=== PATIENT | female | born 1970 | race Caucasian/White ===

== ENCOUNTER 2020-10-18 12:24 | Outpatient (CLI) | payer OTHER, SELFPAY ==
--- NOTE | 2020-10-18 12:59 | ECHO_ITS ---
Patient Info Name: Leigh Rader Age: 50 years : 1970 Gender: Female Ht: 66 in Wt: 155 lbs BSA: 1.82 m2 HR: 60 bpm BP: 117 / 79 mmHg Heart Rhythm: Sinus Rhythm Technical Quality: Good Exam Date: 10/18/2020 1:25 PM Exam Location: [facility] Patient Status: Outpatient Admit Date: 10/18/2020 Staff Ordering Physician: Deangelo Narayan MD Drop Hammer Pile Driver Operator: Mariam Recinos RDCS Attending Provider: Deangelo Narayan MD Exam Type: CA echo doppler color flow Study Info Indications R01.1 - Cardiac murmur, unspecified Complete two-dimensional, color flow and Doppler transthoracic echocardiogram is performed. Summary 1. Complete two-dimensional, color flow and Doppler transthoracic echocardiogram is performed. 2. Left ventricular chamber dimension is normal. 3. Left ventricular systolic function is normal, estimated at 60-65%. 4. The left ventricular diastolic function is normal. 5. E/e' 8 is minimally elevated. 6. Global longitudinal strain is normal at -20.5%. 7. There is trace mitral valve regurgitation. 8. There is trace tricuspid valve regurgitation. 9. No pulmonary hypertension, estimated pulmonary arterial systolic pressure is 16 mmHg. Left Ventricle E/e' 8 is minimally elevated. Global longitudinal strain is normal at -20.5%. Left ventricular chamber dimension is normal. Left ventricular systolic function is normal, estimated at 60-65%. The left ventricular diastolic function is normal. Right Ventricle Right ventricular chamber dimension is normal. Right ventricular systolic function is normal. Left Atria Left atrial chamber dimension is normal. Right Atria Right atrial chamber dimension is normal. Aortic Valve The aortic valve is trileaflet. There is no aortic valve stenosis. There is no aortic valve regurgitation. Pulmonic Valve There is no pulmonic regurgitation. Mitral Valve There is no mitral valve stenosis. There is trace mitral valve regurgitation. Tricuspid Valve There is trace tricuspid valve regurgitation. No pulmonary hypertension, estimated pulmonary arterial systolic pressure is 16 mmHg. Pericardium/Pleural There is no pericardial effusion. Inferior Vena Cava Normal inferior vena cava with >50% collapse upon inspiration consistent with normal right atrial pressure, 5 mmHg. Aorta The aortic root size at the sinus of Valsalva is normal. Left Ventricular Outflow Tract Name Value Normal LVOT 2D LVOT Diameter 2.0 cm LVOT Doppler LVOT Peak Gradient 6 mmHg LVOT Mean Gradient 4 mmHg LVOT VTI 26 cm LVOT VTI/AV VTI Ratio 0.7 LVOT Stroke Volume 81 ml LVOT CO 16.8 l/min LVOT CI 9.2 l/min/m2 Pulmonic Valve Name Value Normal PV Doppler -----
== END 2020-10-18 12:25 | disposition home or self-care (01) ==
PROVIDERS: PCP Family Medicine; Visit Provider Family Medicine
DX: R01.1 Cardiac murmur, unspecified (principal)
CPT/HCPCS: 93306

== ENCOUNTER → 2021-03-19 14:02 | Outpatient (CLI) | payer OTHER, SELFPAY ==
--- NOTE | ~2021-03-19 | XR_ITS ---
XR chest 2V DATE: 03/19/2021 14:14 INDICATION: Cough TECHNIQUE: 2 views COMPARISON: 05/20/2011 two-view chest FINDINGS: Normal heart size. No hilar or mediastinal enlargement. No pulmonary infiltrate or consolid ation, pleural effusion or pulmonary vascular congestion or pneumothorax. IMPRESSION: Negative chest Reviewed, dictated and finalized at location A. C WINFOR[employer] DEVELOPER IMPRESSION: Negative chest
== END ==
PROVIDERS: PCP Nurse Practitioner; Visit Provider Nurse Practitioner
DX: R05.9 Cough, unspecified (principal)
CPT/HCPCS: 71046

== ENCOUNTER 2023-10-27 09:10 | Emergency (ER) | payer BC, SELFPAY ==
--- NOTE | 2023-10-27 09:19 | ED.URI ---
HPI - URI/Sore Throat General Chief Complaint: Upper Respiratory Infection Stated Complaint: Sore Throat Time Seen by Provider: 10/27/23 09:20 Source: patient Mode of arrival: ambulatory Limitations: no limitations History of Present Illness HPI Narrative: Leigh is a 53-year-old female patient presenting to the clinic today with complaints of ulcers to the back of her throat for the past 1-2 days. She states her dentist ordered her some Magic mouthwash however she is unable to get that until Friday or Friday. States that the pain is worse with eating/drinking. Takes methotrexate and has infusions for RA MD elicited complaint: sore throat and nasal congestion Related Data Home Medications Medication Instructions Recorded Confirmed folic acid 1 mg tablet 1 mg PO DAILY 06/26/21 07/25/23 methotrexate sodium 2.5 mg tablet See Rx Instructions PO .COMPLEX 06/26/21 07/25/23 [id number] 8 mg-folic 400 1 tablet PO DAILY 06/26/21 07/25/23 mcg-K 50 mcg-lutein 300 mcg tablet (Centrum Silver Women) prednisone 5 mg tablet See Rx Instructions PO .COMPLEX PRN 06/26/21 07/25/23 tramadol 50 mg tablet 50 mg PO Q6H PRN Pain 06/26/21 07/25/23 tocilizumab 80 mg/4 mL (20 mg/mL) IV Q28D 07/25/23 07/25/23 intravenous solution (Actemra) Allergies Allergy/AdvReac Type Severity Reaction Status Date / Time sulfamethoxazole Allergy Intermediate Hives / Verified 10/27/23 09:25 Red Face trimethoprim Allergy Intermediate HIVES Verified 10/27/23 09:25 OXYCODONE HCL Allergy Intermediate Hives / Uncoded 10/27/23 09:25 Red Face Review of Systems Review of Systems: Pertinent positives per HPI. Patient denies any fever, chills, rash, headache, visual changes, dizziness, cough, runny nose, sore throat, shortness of breath, chest pain, palpitations, nausea, vomiting, diarrhea, constipation, abdominal pain, or any urinary issues. [facility] Past Medical History Medical History Annual visit for general adult medical examination without abnormal findings Chronic pain of left knee Dyslipidemia Environmental allergies History of Pablo's palsy Hypothyroidism Menopausal symptoms Mild intermittent asthma without complication Rheumatoid arthritis Simple partial seizures Vitamin B12 deficiency Vitamin D deficiency Surgical History Surgical History History of left breast biopsy (~2016) 2016 History of left knee surgery (~1980) x3 History of right breast biopsy (~2014) 2015, 2018 History of tonsillectomy (~1974) History of total hysterectomy (~2011) Family History Family History Mother Diabetes mellitus Family history of coronary artery disease Father Family history of coronary artery disease Social History Social History Smoking status: Never smoker Second hand tobacco smoke exposure: No Alcohol intake: current Alcohol use details: consumes 1 drink of mixed rarely Substance use: never Substance use type: does not use Lack of Transportation: No Lack of Food: Never True Current Housing: I Have Housing Concerned About Future Housing: No Difficulty Paying Gas/Electric Bills: No Difficulty Paying for Meds: No Currently Unemployed: No Education: Bachelor's Degree Difficulty w/ Childcare or Family Care: No Living arrangements: with family Additional living arrangements comments: Occupation/Education: occupation Gender identity (if verbalized by the patient): Female Sexual Orientation (if Verbalized by the Patient): Straight or Heterosexual Spiritual care concerns: No Comments At the time of my signature, I reviewed and agree with the nursing past medical, surgical, social, and family history. There is no relevant family history pertinent to th
[2023-10-27 09:24] VITALS: BP 133/83; PULSE 85; RESP 16; TEMP 36.6; O2SAT 100
[2023-10-27 09:33] LABS: EDSTREPNEGPOS1 Negative
== END 2023-10-27 09:44 | disposition home or self-care (01) ==
PROVIDERS: Emergency Provider Nurse Practitioner Family; PCP Family Medicine
DX: J39.2 Other diseases of pharynx (principal); E78.5 Hyperlipidemia, unspecified; E03.9 Hypothyroidism, unspecified; M06.9 Rheumatoid arthritis, unspecified; J45.909 Unspecified asthma, uncomplicated; Z90.710 Acquired absence of both cervix and uterus
CPT/HCPCS: 87081; 87880; 99213; G0463

== ENCOUNTER 2023-11-08 08:00 | Emergency (ER) | payer BC, SELFPAY ==
[2023-11-08 08:10] VITALS: BP 111/81; PULSE 95; RESP 16; TEMP 36.4; O2SAT 99
--- NOTE | 2023-11-08 08:23 | ED.EAR ---
HPI - Ear Problem General Chief complaint: Ear Stated complaint: EARACHE Time Seen by Provider: 11/08/23 08:15 Source: patient and RN notes reviewed Mode of arrival: ambulatory Limitations: no limitations History of Present Illness HPI Narrative: Patient presents today with ongoing left ear pain. She was seen a few weeks ago at Urgent Care for an ulceration in her pharynx that she has been treating as directed by her PCP in recurrent nurse practitioner without much relief. She has also been using a nasal spray without relief of her ear symptoms. She is concerned because she is flying tomorrow to [facility] for vacation and does not want the plane to affect her ear. Denies any difficulty hearing. Pain increases with swallowing and position changes in bed. Related Data Home Medications Medication Instructions Recorded Confirmed folic acid 1 mg tablet 1 mg PO DAILY 06/26/21 07/25/23 methotrexate sodium 2.5 mg tablet See Rx Instructions PO .COMPLEX 06/26/21 07/25/23 [id number]-[id number] 8 mg-folic 400 1 tablet PO DAILY 06/26/21 07/25/23 mcg-K 50 mcg-lutein 300 mcg tablet (Centrum Silver Women) prednisone 5 mg tablet See Rx Instructions PO .COMPLEX PRN 06/26/21 07/25/23 tramadol 50 mg tablet 50 mg PO Q6H PRN Pain 06/26/21 07/25/23 tocilizumab 80 mg/4 mL (20 mg/mL) IV Q28D 07/25/23 07/25/23 intravenous solution (Actemra) Allergies Allergy/AdvReac Type Severity Reaction Status Date / Time sulfamethoxazole Allergy Intermediate Hives / Verified 10/27/23 09:25 Red Face trimethoprim Allergy Intermediate HIVES Verified 10/27/23 09:25 OXYCODONE HCL Allergy Intermediate Hives / Uncoded 10/27/23 09:25 Red Face Review of Systems Review of Systems: CONSTITUTIONAL: Denies body aches, fever, chills, or sweats. EYES: Denies visual changes, redness, or discharge. ENT: Denies rhinorrhea, congestion. + throat pain, left ear pain CARDIOVASCULAR: Denies chest pain, palpitations, or edema. RESPIRATORY: Denies cough or dyspnea. GASTROINTESTINAL: Denies abdominal pain, nausea, vomiting, or diarrhea. GENITOURINARY: Denies dysuria or hematuria. SKIN: Denies rash, itching, or wounds. MUSCULOSKELETAL: Denies back pain, joint pain, or myalgia. NEUROLOGIC: Denies headache, numbness, tingling, or weakness. PSYCH: Denies depression or anxiety. [facility] Past Medical History Medical History Annual visit for general adult medical examination without abnormal findings Chronic pain of left knee Dyslipidemia Environmental allergies History of Pablo's palsy Hypothyroidism Menopausal symptoms Mild intermittent asthma without complication Rheumatoid arthritis Simple partial seizures Vitamin B12 deficiency Vitamin D deficiency Surgical History Surgical History History of left breast biopsy (~2016) 2016 History of left knee surgery (~1980) x3 History of right breast biopsy (~2014) 2015, 2017 History of tonsillectomy (~1974) History of total hysterectomy (~2011) Family History Family History Mother Diabetes mellitus Family history of coronary artery disease Father Family history of coronary artery disease Social History Social History Smoking status: Never smoker Second hand tobacco smoke exposure: No Alcohol intake: current Alcohol use details: consumes 1 drink of mixed rarely Substance use: never Substance use type: does not use Lack of Transportation: No Lack of Food: Never True Current Housing: I Have Housing Concerned About Future Housing: No Difficulty Paying Gas/Electric Bills: No Difficulty Paying for Meds: No Currently Unemployed: No Education: Bachelor's Degree Difficulty w/ Childcare or Family Care: No Living arrangements: with family Additi
== END 2023-11-08 08:34 | disposition home or self-care (01) ==
PROVIDERS: Emergency Provider Nurse Practitioner; PCP Family Medicine
DX: H92.02 Otalgia, left ear (principal); E78.5 Hyperlipidemia, unspecified; E03.9 Hypothyroidism, unspecified; M06.9 Rheumatoid arthritis, unspecified
CPT/HCPCS: 99211; G0463

== ENCOUNTER 2024-07-26 10:56 | Outpatient (CLI) | payer BC, SELFPAY ==
--- OUTSIDE RECORDS SUMMARY | 2024-07-26 11:35 | XMS_ITS | Encounter Summary ---
Author Organization [facility] Address [address] [facility] Attn: Epic Prelude ADT GAMA JOHNSON [address] Care Team Providers Care Breakfast Hostess Name Role Phone Memo Narayan MD Primary Care Provider Encounter Details Date Type Department Care Team (Late st Contact Info) Description 01/04/1997 Outpatient Historical Conversion, History Martin Salcedo MD [address] [facility] [place] [address] Social History Tobacco Use Types Packs/Day Years Used Date Smoking Tobacco: Never Assessed Comments Unknown Sex and Gender Information Value Date Recorded Sex Assigned at Not on file Legal Sex Female 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
--- OUTSIDE RECORDS SUMMARY | 2024-07-26 11:35 | XMS_ITS | Encounter Summary ---
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
--- OUTSIDE RECORDS SUMMARY | 2024-07-26 11:35 | XMS_ITS | Encounter Summary ---
Author Organization [facility] Address [address] [facility] Attn: Epic Prelude ADT GAMA JOHNSON [address] Care Team Providers Care Circuits Engineer Name Role Phone Memo Narayan MD Primary Care Provider Encounter Details Date Type Department Care Team (Late st Contact Info) Description 11/02/1996 Outpatient Historical Conversion, History Martin Salcedo MD [address] [facility] [place] [address] Social History Tobacco Use Types Packs/Day Years Used Date Smoking Tobacco: Never Assessed Comments Unknown Sex and Gender Information Value Date Recorded Sex Assigned at Not on file 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
--- OUTSIDE RECORDS SUMMARY | 2024-07-26 11:35 | XMS_ITS | Continuity of Care Document ---
Author Organization [facility] Address [address] [place] [address] Phone Care Team Providers Care Aitchbone Breaker Name Role Phone Enrique Chan MD Unavailable [...] Diagnoses Date Provider Providers [facility]ied on [facility], [address], [place], [place], [id number] , [place] tel: [phone] [facility] Encounter for immunization Momo Nunez. [address] [place] [address], [id number] , [place]. tel: [phone] Referring Provider: Enrique Chan [address], [address]. tel:[phone] [facility], [address], [place], [place], [address] , [place] tel: [phone] [facility] No Information 4 Dustin Enrique. [address] [place] [address], [id number] , . tel: [phone] [facility], [address], [place], [place], [id number] , [place] tel: [phone] [facility] No Information 4 Dustin Nunez. [address] [place] [address], [id number] , [place]. tel: [phone] Referring Provider: Enrique Chan, [address] [place] [address], [address]. tel:[phone] [facility], [address], [place], [place], [id number] , tel: [phone] [facility] INTRINSIC ASTHMA, UNSPECIFIEDAller gic rhinitis due to other allergen Sep-0 3 Dustin Enrique. [address] [place] [address], [id number] , . tel: [phone] Referring Provider: Marlon Antony, [address] [place] [address], [address]. tel:[phone] [facility], [address], [place], [place], [address] , [place] tel: [phone] [facility] No Information 2 Dustin Nunez. [address] [place] [address], [id number] , [place]. tel: [phone] Referring Provider: Enrique Chan, [address] [place] [address], [address]. tel:[phone] [facility], [address], [place], [place], [address] , [place] tel: [phone] [facility] INTRINSIC ASTHMA, UNSPECIFIEDAller gic rhinitis due to other allergen Sep-2 0- 2 Dustin Nunez. [address], [id number] , [place]. tel: [phone] Referring Provider: Marlon Antony, [address] [place] [address], [address]. tel:[phone] [facility], [address], [place], [place], [id number] , [place] tel: [phone] [facility] No Information 1 Dustin Nunez. [address], [id number] , [place]. tel: [phone] Referring Provider: Enrique Chan, [address] [place] [address], [address]. [phone] [facility], [address], [place], [place], [id number] , [place] tel: [phone] [facility] Allergic rhinitis due to other allergen Oct-2 1 Dustin Nunez. [address], [id number] , [place]. tel: [phone] Referring Provider: Marlon Antony, [address] [place] [address], [address]. tel:[phone] [facility], [address] [place] [address], [id number] , [place] tel: [phone] [facility] INTRINSIC ASTHMA NOSVACCIN FOR INFLUENZA 0 Dustin Nunez. [address], [id number] , [place]. tel: [phone] [facility], [address], [place], [id number] , [place] tel: [phone] [facility] ALLERGIC RHINITIS NEC 0 Dustin Nunez. [address], [id number] , [place]. tel: [phone] [facility], [address], [place], [place], [address] , [place] tel: [phone] [facility] RESPIRATORY ABNORM NEC 200 8 Dustin Nunez. [address], [id number] , [place]. tel:[phone] Family History Family Member Type Diagnosis Age At Onset No Information Immunizations Vaccine Date Status Comments Influenza, seasonal, injectable (3 yrs or older) administered Source: New Immunization Record Influenza, seasonal, injectable (3 yrs or older) administered Source: New Immunization Record Flu (split) (3 yrs or older) administered Source: New Immunization Record Flu (split) (3 yrs or older) administered Source: New Immunization Record [id number] - Influenza administered Source: Saima cuellar Unspecified Flu (split) (3 yrs or older) pending Source: New Immunization Record Payers Payer name Insurance type Covered alliance party ID Authoriza tion(s) [facility] [id number] [facility] [id number] Social History Type Description Quantity Date Captured [...]
--- OUTSIDE RECORDS SUMMARY | 2024-07-26 11:35 | XMS_ITS | Encounter Summary ---
Author Organization [facility] Address [address] [facility] Attn: Epic Prelude ADT [place]AMA [place] [address] Care Team Providers Care Manager Provider Relations Name Role Phone Memo Narayan MD Primary Care Provider Encounter Details Date Type Department Care Team (Late st Contact Info) Description 01/18/1997 Outpatient Historical Conversion, History Martin Salcedo MD [address] [place] [address] Social History Tobacco Use Types Packs/Day Years Used Date Smoking Tobacco: Never Assessed Comments Unknown Sex and Gender Information Value Date Recorded Sex Assigned at Not on file Legal Sex Female 4:32 AM CISSP Gender Identity Not on file Sexual Orientation Not on file documented as of this encounter Plan of Treatment Not on file documented as of this encounter Visit Diagnoses Not on filedocumented in this encounter Care Teams Manager Provider Relations Relationship Specialty Start Date End Date Memo Narayan MD [address] [place] [phone] PCP - General Family Practice 07/09/17 documented as of this encounter
--- OUTSIDE RECORDS SUMMARY | 2024-07-26 11:35 | XMS_ITS | Clinical Summary ---
Author Organization [email or web address] [place] Address [address] [place] [address] [address] Phone Care Team Providers Care Branch Chief Name Role Phone Memo Narayan MD Primary Care Provider Allergies Active Allergy Reactions Criticality Noted Date Comments Oxycodone-Acetaminophen Rash,Itching Low 06/22/2014 Sulfamethoxazole-Trimethoprim Hives High 2008 Medications simvastatin (ZOCOR) 40 mg Oral TabIndications:A bnormal mammogram, unspecified Take 40 mg by mouth Daily LATE. Active MOMETASONE FUROATE (NASONEX NA)Indications:A bnormal mammogram, unspecified Administer in each nostril. Active LEVOTHYROXINE 75 mcg tabletIndication s:Abnormal mammogram, unspecified 5 Active calcium Carbonate 390 mg (1,000 mg) Tablet Take 600 mg by mouth 2 times daily with meals. Active desoximetasone (TOPICORT) 0.25 % Ointment Apply to affected area of breast twice per day. 15 Gram 1 5 Active OXcarbazepine (TRILEPTAL) 150 mg tablet 6 Active venlafaxine (EFFEXOR XR) 75 mg Extended Release 24 hour capsule 9 Active Active Problems Patient Care Coordination No te Formatting of this note migh t be different from the original. Primary Care: Marlon Antony MD Referring Provider: No referring provider defined for this encounter. Other: Problem Noted Date Diagnosed Date Mammographic calcification 07/15/2017 Herpes zoster 07/13/2014 Fibrocystic changes of right breast 07/04/2014 Hypothyroidism Resolved Problems Problem Noted Date Diagnosed Date Resolved Date Breast lump 09/25/2015 01/21/2017 Visit for screening mammogram 2015 07/15/2017 Breast pain 09/05/2014 01/21/2017 Abnormal mammogram 01/16/2009 8 Encounters Date Type Department Care Team Description 07/20/2024 External Device Data [facility] ABSTRACTION Provider, Abstract 07/15/2024 External Device Data [facility] ABSTRACTION Provider, Abstract 2024 External Device Data [facility] ABSTRACTION Provider, Abstract 06/29/2024 External Device Data [facility] ABSTRACTION Provider, Abstract 05/12/2024 External Device Data [facility] ABSTRACTION Provider, Abstract 05/05/2024 External Device Data [facility] ABSTRACTION Provider, Abstract 05/04/2024 External Device Data [facility] ABSTRACTION Provider, Abstract 05/01/2024 External Device Data [facility] ABSTRACTION Provider, Abstract 05/01/2024 External Device Data [facility] ABSTRACTION Provider, Abstract 04/28/2024 External Device Data [facility] ABSTRACTION Provider, Abstract from Last 3 Months Family History Medical History Relation Name Comments Heart Disease Maternal Aunt Heart Disease Maternal Grandfather Heart Disease Maternal Uncle Diabetes Mother Breast Cancer Other 3 m.grtaunts 60-70 age Relation Name Status Comments Maternal Aunt Maternal Grandfather Maternal Uncle Mother Other 3 m.grtaunts Other Social History Tobacco Use Types Packs/Day Years Used Date Smoking Tobacco: Never Smokeless Tobacco: Never Alcohol Use Standard Drinks/Week Comments Yes 0 (1 standard drink = 0.6 oz pur e alcohol) rarely Comments No Sex and Gender Information Value Date Recorded Sex Assigned at Not on file Legal Sex Female 4:32 AM INTERNET MARKETING SPECIALIST Gender Identity Not on file Sexual Orientation Not on file Occupation Industry Job Start Date Job End Date Not on file Not on file Not on file Not on file Last Filed Vital Signs Vital Sign Reading Time Taken Comments Blood Pressure 98/56 08/07/2018 10:39 AM CDT Pulse 59 07/15/2017 9:59 AM CDT Temperature 36.4 C (97.6 F) 06/23/2014 12:03 PM CDT Respiratory Rate 9 06/23/2014 12:44 PM CDT Oxygen Saturation 98% 06/23/2014 12:44 PM CDT Inhaled Oxygen Concentration - - Weight 67.2 kg (148 lb 3.2 oz) 08/07/2018 10:39 AM CDT Height 167.6 cm (5' 6) 08/07/2018 10:39 AM CDT Body Mass Index 23.92 08/07/2018 10:39 AM CDT Plan of Treatment Health Maintenance Due Date Last Done Comments DTAP/TDAP/TD VACCINES (1 - Tdap) 07/15/1987 HEPATITIS B VACCINES (1 of 3 - 19+ 3-dose series) 07/15/1987 HPV/Cotest (21-29) 1989 CERVICAL CANCER SCREENING 1998 HPV/Cotest (30-65) 1998 PAP SMEAR 1998 COLORECTAL SCREENING 2013 Colorectal Cancer Screening 2013 FIT-DNA Q 3 years 2013 FIT/FOBT Q 1 year 2013 Flex Sig/CT Colonography Q 5 years 2013 ZOSTER VACCINE (1 of 2) 2018 INFLUENZA VACCINE (#1) 2023 BREAST CANCER SCREENING 02/09/2025 02/10/20 24, 01/30/2023, 10/17/2021, Additional history exists Procedures Procedure Name Priority Date/Time Associated Diagnosis Comments MAMMO 3D SHELLEY SCREEN BILAT W OR WO CAD Routine 02/10/2024 12:44 PM INTERNET MARKETING SPECIALIST Visit for screening mammogram from Last 3 Months or Most Recently Relevant to Health Maintenance Results * MAMMO 3D SHELLEY SCREEN BILAT W OR WO CAD (02/10/2024 12:44 PM INTERNET MARKETING SPECIALIST) Anatomical Region Laterality Modality Breast Bilateral Mammography 02/10/2024 12:4 5 PM INTERNET MARKETING SPECIALIST Impressions 02/10/2024 4:00 PM INTERNET MARKETING SPECIALIST IMPRESSION: Negative bilateral screening mammogram. Recommend routine followup. OVERALL FINAL ASSESSMENT: BI-RADS CATEGORY 1: Negative DICTATION LOCATION: [facility] 02/10/2024 4:00 PM INTERNET MARKETING SPECIALIST BILATERAL SCREENING DIGITAL MAMMOGRAM WITH 3D TOMOSYNTHESIS AND CAD DATE: 02/10/2024 12:44 PM HISTORY: Annual screening study. COMPARISON: 01/30/2023, 08/07/2018. TECHNIQUE: A bilateral screening mammogram was performed. Low-dose full-field digital breast tomosynthesis examination was performed with 2D and 3D acquisitions. Examination is read in conjunction with computer aided detection. BREAST COMPOSITION: There are scattered areas of fibroglandular density. FINDINGS: No new masses, suspicious calcifications, or areas of asymmetry or distortion are identified. The images were reviewed using the CAD system. Procedure Note Beatris Desai MD - 02/10/2024 BILATERAL SCREENING DIGITAL MAMMOGRAM WITH 3D TOMOSYNTHESIS AND CAD DATE: 02/10/2024 12:44 PM HISTORY: Annual screening study. COMPARISON: 01/30/2023, 08/07/2018. TECHNIQUE: A bilateral screening mammogram was performed. Low-dose full-field digital breast tomosynthesis examination was performed with 2D and 3D acquisitions. Examination is read in conjunction with computer aided detection. BREAST COMPOSITION: There are scattered areas of fibroglandular density. FINDINGS: No new masses, suspicious calcifications, or areas of asymmetry or distortion are identified. The images were reviewed using the CAD system. IMPRESSION: Negative bilateral screening mammogram. Recommend routine followup. OVERALL FINAL ASSESSMENT: BI-RADS CATEGORY 1: Negative DICTATION LOCATION: [facility] Memo Narayan MD MAMMO ORDERABLES Final Result from Last 3 Months or Most Recently Relevant to Health Maintenance Insurance [facility] BLUE ACCESS/TRUE BLUE PPO Advance Directives For more information, please contact: [phone] * Full Code (Latest Code Status on File) Date Activated Date Inactivated Comments 06/23/2014 10:11 AM 06/23/2014 3:19 PM * Full Code Date Activated Date Inactivated Comments 06/23/2014 9:57 AM 06/23/2014 10:11 AM Care Teams Branch Chief Relationship Specialty Start Date End Date Memo Narayan MD [address] [place] [phone] PCP - General Family Practice 07/09/17
--- OUTSIDE RECORDS SUMMARY | 2024-07-26 11:35 | XMS_ITS | Encounter Summary ---
Author Organization [facility] Address [address] [facility] Attn: Epic Prelude ADT GAMA [place] [address] Care Team Providers Care Mainspring Former Name Role Phone Memo Narayan MD Primary Care Provider Encounter Details Date Type Department Care Team (Late st Contact Info) Description 12/14/1996 Outpatient Historical Conversion, History Martin Salcedo MD [address] [place] [address] Social History Tobacco Use Types Packs/Day Years Used Date Smoking Tobacco: Never Assessed Comments Unknown Sex and Gender Information Value Date Recorded Sex Assigned at Not on file Legal Sex Female 4:32 AM SEED CORE OPERATOR Gender Identity Not on file Sexual Orientation Not on file documented as of this encounter Plan of Treatment Not on file documented as of this encounter Visit Diagnoses Not on filedocumented in this encounter Care Teams Mainspring Former Relationship Specialty Start Date End Date Memo Narayan MD [address] [place] [phone] PCP - General Family Practice 07/09/17 documented as of this encounter
--- OUTSIDE RECORDS SUMMARY | 2024-07-26 11:35 | XMS_ITS | Encounter Summary ---
Author Organization [facility] Address [address] [facility] Attn: Epic Prelude ADT GAMA [place] [phone] Care Team Providers Care Plate Colorer Name Role Phone Memo Narayan MD Primary Care Provider Encounter Details Date Type Department Care Team (Late st Contact Info) Description 05/17/1997 Outpatient Historical Conversion, History Martin Salcedo MD [address] [place] [address] Social History Tobacco Use Types Packs/Day Years Used Date Smoking Tobacco: Never Assessed Comments Unknown Sex and Gender Information Value Date Recorded Sex Assigned at Not on file Legal Sex Female 4:32 AM CHILD CARE DEVELOPMENT SPECIALIST Gender Identity Not on file Sexual Orientation Not on file documented as of this encounter Plan of Treatment Not on file documented as of this encounter Visit Diagnoses Not on filedocumented in this encounter Care Teams Plate Colorer Relationship Specialty Start Date End Date Memo Narayan MD [address] [place] [phone] PCP - General Family Practice 07/09/17 documented as of this encounter
--- OUTSIDE RECORDS SUMMARY | 2024-07-26 11:35 | XMS_ITS | Encounter Summary ---
Author Organization [facility] Address [address] [facility] Attn: Epic Prelude ADT GAMA [place] [phone] Care Team Providers Care Brim Raiser Name Role Phone Memo Narayan MD Primary Care Provider Encounter Details Date Type Department Care Team (Late st Contact Info) Description 08/06/1996 Outpatient Historical Conversion, History Martin Salcedo MD [address] [place] [address] Social History Tobacco Use Types Packs/Day Years Used Date Smoking Tobacco: Never Assessed Comments Unknown Sex and Gender Information Value Date Recorded Sex Assigned at Not on file Legal Sex Female 4:32 AM FASHION COORDINATOR Gender Identity Not on file Sexual Orientation Not on file documented as of this encounter Plan of Treatment Not on file documented as of this encounter Visit Diagnoses Not on filedocumented in this encounter Care Teams Brim Raiser Relationship Specialty Start Date End Date Memo Narayan MD [address] [place] [phone] PCP - General Family Practice 07/09/17 documented as of this encounter
--- OUTSIDE RECORDS SUMMARY | 2024-07-26 11:35 | XMS_ITS | Clinical Summary ---
Author Organization [facility] Address [address] [place] [address] Care Team Providers Care Tobacco Drier Operator Name Role Phone Memo Narayan MD Primary Care Provider Source Comments [facility],non-owned Affiliates and Associated Physician Practices is amultiple site organization consisting of ambulatory clinics and hospital sitesin [place], [place], [place] and [place]. This disclosure is being madepursuant to the Care Everywhere program and may not contain all information available regarding this patient. Last updated 17.[facility] Allergies Active Allergy Reactions Criticality Noted Date Comments Sulfamethoxazole W-Trimethoprim Urticaria Medium 09/2015 Medications * Be aware that medications may not be up to date on this document. Alwaysverify current medications with the patient. levothyroxine (SYNTHROID) 75 MCG tablet Take 75 mcg by mouth daily before breakfast Active simvastatin (ZOCOR) 40 MG tablet Take 40 mg by mouth at bedtime Active OXcarbazepine (TRILEPTAL) 150 MG tablet Take 150 mg by mouth 2 times daily Active Family History Medical History Relation Name Comments Hyperlipidemia Father Diabetes - Type 2 Mother Hyperlipidemia Mother Relation Name Status Comments Father Mother Social History Tobacco Use Types Packs/Day Years Used Date Smoking Tobacco: Never Smokeless Tobacco: Never Comments No Sex and Gender Information Value Date Recorded Sex Assigned at Not on file Legal Sex Female 6:16 AM BEHAVIORAL HEALTH THERAPIST Gender Identity Not on file Sexual Orientation Not on file Last Filed Vital Signs Vital Sign Reading Time Taken Comments Blood Pressure 112/68 06/17/2017 11:30 AM CDT Pulse 78 06/17/2017 11:30 AM CDT Temperature 37 C (98.6 F) 06/17/2017 11:30 AM CDT Respiratory Rate 16 06/17/2017 11:30 AM CDT Oxygen Saturation 98% 06/17/2017 11:30 AM CDT Inhaled Oxygen Concentration - - Weight 63.5 kg (140 lb) 06/17/2017 11:30 AM CDT Height 167.6 cm (5' 6) 06/17/2017 11:30 AM CDT Body Mass Index 22.6 06/17/2017 11:30 AM CDT Plan of Treatment Health Maintenance Due Date Last Done Comments COLOGUARD (AGES 45-75) - COL ON CA SCREENING 1968 COLON MONITORING 1968 COLONOSCOPY - COLON CA SCREENING 1968 CT COLONOGRAPHY - COLON CA SCREENING 1968 Colorectal Cancer Screening 1968 FIT - COLON CA SCREENING 1968 FLEX SIG - COLON CA SCREENING 1968 MAMMOGRAM 1968 HIV SCREENING 07/15/1983 HEPATITIS C SCREENING 07/10/1986 DTAP/TDAP/TD VACCINES (1 - Tdap) 07/15/1987 HEPATITIS B VACCINE (1 of 3 - 19+ 3-dose series) 07/15/1987 PNEUMOCOCCAL VACCINE 50+ (1 of 1 - PCV) 2018 ZOSTER VACCINE (1 of 2) 2018 COVID-19 VACCINE ( - 2023-2 5 season) 2023 DEPRESSION SCREENING 02/25/2024 INFLUENZA VACCINE (Season Ended) 2024 HIB VACCINE Aged Out No longer eligi ble based on patient's age to complete this topic HPV VACCINE Aged Out No longer eligi ble based on patient's age to complete this topic MENINGOCOCCAL (Group B) VACC INE SHARED DECISION-MAKING Aged Out No longer eligibl e based on patient's age to complete this topic MENINGOCOCCAL GROUPS A/C/Y/W VACCINE Aged Out No longer eligible b ased on patient's age to complete this topic Insurance [facility] Member Subscriber Plan / Payer (Ef fective 2015-Present) Name:Leigh Wells Relation to Subscriber:Spouse Name:CHON WELLS Date of :1969 (Home) Address: [facility] [address] [place] [address] Payer ID:[id number] (NAIC) Type:O Address: [address] [facility] Care Teams Tobacco Drier Operator Relationship Specialty Start Date End Date Memo Narayan MD [address] [place] [phone] PCP - General Family Medicine 06/17/17
--- OUTSIDE RECORDS SUMMARY | 2024-07-26 11:35 | XMS_ITS | Encounter Summary ---
Author Organization [facility] Address [address] [facility] Attn: Epic Prelude ADT GAMA [place] [phone] Care Team Providers Care Business Project Analyst Name Role Phone Memo Narayan MD Primary Care Provider Encounter Details Date Type Department Care Team (Late st Contact Info) Description 04/26/1997 Outpatient Historical Conversion, History Martin Salcedo MD [address] [place] [address] Social History Tobacco Use Types Packs/Day Years Used Date Smoking Tobacco: Never Assessed Comments Unknown Sex and Gender Information Value Date Recorded Sex Assigned at Not on file Legal Sex Female 4:32 AM ALL TERRAIN VEHICLE TECHNICIAN Gender Identity Not on file Sexual Orientation Not on file documented as of this encounter Plan of Treatment Not on file documented as of this encounter Visit Diagnoses Not on filedocumented in this encounter Care Teams Business Project Analyst Relationship Specialty Start Date End Date Memo Narayan MD [address] [place] [phone] PCP - General Family Practice 07/09/17 documented as of this encounter
--- OUTSIDE RECORDS SUMMARY | 2024-07-26 11:35 | XMS_ITS | Encounter Summary ---
Author Organization [facility] Address [address] [facility] Attn: Epic Prelude ADT GAMA [place] [phone] Care Team Providers Care Ammunition Storekeeper Name Role Phone Memo Narayan MD Primary Care Provider Encounter Details Date Type Department Care Team (Late st Contact Info) Description 09/24/1996 Outpatient Historical Conversion, History Martin Salcedo MD [address] [facility] [place] [address] Social History Tobacco Use Types Packs/Day Years Used Date Smoking Tobacco: Never Assessed Comments Unknown Sex and Gender Information Value Date Recorded Sex Assigned at Not on file Legal Sex Female 4:32 AM MATERIALS MANAGEMENT MANAGER Gender Identity Not on file Sexual Orientation Not on file documented as of this encounter Plan of Treatment Not on file documented as of this encounter Visit Diagnoses Not on filedocumented in this encounter Care Teams Ammunition Storekeeper Relationship Specialty Start Date End Date Memo Narayan MD [address] [place] [phone] PCP - General Family Practice 07/09/17 documented as of this encounter
[2024-07-26 15:54] LABS: Kit Draw Collected
== END 2024-07-26 10:57 | disposition home or self-care (01) ==
LOC: ANHGOSHLAB 10:57
PROVIDERS: PCP Family Medicine; Visit Provider Family Medicine
DX: Z00.00 Encounter for general adult medical examination without abnormal findings (principal); E03.9 Hypothyroidism, unspecified; E53.8 Deficiency of other specified B group vitamins; E55.9 Vitamin D deficiency, unspecified; E78.5 Hyperlipidemia, unspecified; I10 Essential (primary) hypertension; R73.9 Hyperglycemia, unspecified
CPT/HCPCS: 36415

== ENCOUNTER 2024-10-29 12:31 | Outpatient (CLI) | payer BC, SELFPAY ==
--- OUTSIDE RECORDS SUMMARY | 2014-12-05 09:50 | XMS_ITS | Continuity of Care Document ---
Author Organization [facility] Address [address] [place] [address] Phone Care Team Providers Care Network Support Technician Name Role Phone Enrique Chan MD Unavailable Unavailable Allergies, Adverse Reactions, Alerts Substance Reaction Status Criticality acetaminophen Rash Active No Information OXYCODONE HCL Rash Active No Information trimethoprim Hives Active No Information sulfamethoxazole Hives Active No Informat ion Medications Medication Instructions Dosage Effective Dates (start - stop) Status Comments FLONASE 0.05% SPR USE TWO SPRAY IN EAC H NOSTRIL EVERY DAY - Active Ventolin HFA 90 mcg/actuation Aerosol Inhaler inhale 2 puff by inhalation route every 4 - 6 hours as needed - Active Synthroid 88 mcg Tab take 1 tablet (88MC G) by oral route every day 88 MCG - Active Zocor 40 mg Tab take 1 tablet (40MG) by oral route every day in the evening 40 MG - Active Advance Directives Directive Yes / No Effective Date File Name No Information Encounters Encounter Description Practice Location Reason(s) For Visit Diagnoses Date Provider Providers Copied on [email or web address] [address], [place], [place], [id number] , [place] tel: [phone] [facility] Encounter for immunization Momo Nunez. [address] [place] [address], [id number] , [place]. tel: [phone] Referring Provider: Enrique Chan [address], [address]. tel:[phone] [facility], [address], [place], [place], [id number] , [place] tel: [phone] [facility] No Information 4 Dustin Enrique. [address] [place] [address], [id number] , . tel: [phone] [facility], [address], [place], [place], [id number] , [place] tel: [phone] [facility] No Information 4 Dustin Nunez. [address] [place] [address], [id number] , [place]. tel: [phone] Referring Provider: Enrique Chan, [address] [place] [address], [address]. tel:[phone] [facility], [address], [place], [place], [id number] , tel: [phone] [facility] INTRINSIC ASTHMA, UNSPECIFIEDAller gic rhinitis due to other allergen Sep-0 3 Dustin Enrique. [address] [place] [address], [id number] , . tel: [phone] Referring Provider: Marlon Antony, [address] [place] [address], [address]. tel:[phone] [facility], [address], [place], [place], [id number] , [place] tel: [phone] [facility] No Information 2 Dustin Nunez. [address] [place] [address], [id number] , [place]. tel: [phone] Referring Provider: Enrique Chan, [address] [place] [address], [address]. tel:[phone] [facility], [address], [place], [place], [id number] , [place] tel: [phone] [facility] INTRINSIC ASTHMA, UNSPECIFIEDAller gic rhinitis due to other allergen Sep-2 0- 2 Dustin Nunez. [address], [id number] , [place]. tel: [phone] Referring Provider: Marlon Antony, [address] [place] [address], [address]. tel:[phone] [email or web address], [address], [place], [place], [id number] , [place] tel: [phone] [facility] No Information 1 Dustin Nunez. [address], [id number] , [place]. tel: [phone] Referring Provider: Enrique Chan, [address] [place] [address], [address]. tel:[phone] [facility], [address], [place], [place], [id number] , [place] tel: [phone] [facility] Allergic rhinitis due to other allergen Oct-2 1 Dustin Nunez. [address], [id number] , [place]. tel: [phone] Referring Provider: Marlon Antony, [address] [place] [address], [address]. tel:[phone] [email or web address], [address] [place] [address], [id number] , [place] tel: [phone] [facility] INTRINSIC ASTHMA NOSVACCIN FOR INFLUENZA 0 Dustin Nunez. [address], [id number] , [place]. tel: [phone] [facility], [address], [place], [place], [id number] , [place] tel: [phone] [facility] ALLERGIC RHINITIS NEC 0 Dustin Nunez. [address], [id number] , [place]. tel: [phone] [email or web address], [address], [place], [place], [id number] , [place] tel: [phone] [facility] RESPIRATORY ABNORM NEC 200 8 Dustin Nunez. [address], [id number] , [place]. tel:[phone] Family History Family Member Type Diagnosis Age At Onset No Information Immunizations Vaccine Date Status Comments Influenza, seasonal, injectable (3 yrs or older) administered Source: New Immunization Record Influenza, seasonal, injectable (3 yrs or older) administered Source: New Immunization Record Flu (split) (3 yrs or older) administered Source: New Immunization Record Flu (split) (3 yrs or older) administered Source: New Immunization Record [id number] - Influenza administered Source: Saima cuellar Unspecified Flu (split) (3 yrs or older) pending Source: New Immunization Record Payers Payer name Insurance type Covered democrat ID Authoriza tion(s) [facility] [id number] [facility] [id number] Social History Type Description Quantity Date Captured Comments Sex Female Smoking Status No Information Chief Complaint And Reason For Visit No Information Reason For Referral Reason For Referral No Information Plan Of Treatment Date Type Action Status Unknown Immunization Flu (split) (3 yrs or older) ordered History Of Present Illness Encounter Date Complaint History Of Prese nt Illness No Information Functional Status Date Functional Assessmen t No Information Instructions Date Instruction Additional Infor mation No Information Assessments Type Assessment Date No Information Patient Care Teams Name Effective Dates (start - stop) Status Members No Information
--- OUTSIDE RECORDS SUMMARY | 2024-10-29 12:35 | XMS_ITS | Encounter Summary ---
Author Organization [facility] Address [address] [facility] Attn: Epic Prelude ADT GAMA [place] [phone] Care Team Providers Care Timber Management Technician Name Role Phone Memo Narayan MD Primary Care Provider Encounter Details Date Type Department Care Team (Late st Contact Info) Description 08/06/1996 Outpatient Historical Conversion, History Martin Salcedo MD [address] [place] [address] Social History Tobacco Use Types Packs/Day Years Used Date Smoking Tobacco: Never Assessed Comments Unknown Sex and Gender Information Value Date Recorded Sex Assigned at Not on file Legal Sex Female 4:32 AM BINDER OPERATOR Gender Identity Not on file Sexual Orientation Not on file documented as of this encounter Plan of Treatment Not on file documented as of this encounter Visit Diagnoses Not on filedocumented in this encounter Care Teams Timber Management Technician Relationship Specialty Start Date End Date Memo Narayan MD [address] [place] [phone] PCP - General Family Practice 07/09/17 documented as of this encounter
--- OUTSIDE RECORDS SUMMARY | 2024-10-29 12:36 | XMS_ITS | Encounter Summary ---
Author Organization [facility] Address [address] [facility] Attn: Epic Prelude ADT GAMA [place] [phone] Care Team Providers Care Crown Ceramist Name Role Phone Memo Narayan MD Primary Care Provider Encounter Details Date Type Department Care Team (Late st Contact Info) Description 05/17/1997 Outpatient Historical Conversion, History Martin Salcedo MD [address] [place] [address] Social History Tobacco Use Types Packs/Day Years Used Date Smoking Tobacco: Never Assessed Comments Unknown Sex and Gender Information Value Date Recorded Sex Assigned at Not on file Legal Sex Female 4:32 AM LABORER ADJUSTABLE STEEL JOIST Gender Identity Not on file Sexual Orientation Not on file documented as of this encounter Plan of Treatment Not on file documented as of this encounter Visit Diagnoses Not on filedocumented in this encounter Care Teams Crown Ceramist Relationship Specialty Start Date End Date Memo Narayan MD [address] [place] [phone] PCP - General Family Practice 07/09/17 documented as of this encounter
--- OUTSIDE RECORDS SUMMARY | 2024-10-29 12:36 | XMS_ITS | Encounter Summary ---
Author Organization [facility] Address [address] [facility] Attn: Epic Prelude ADT GAMA [place]NSON [phone] Care Team Providers Care Glass Sander Belt Name Role Phone Memo Narayan MD Primary Care Provider Encounter Details Date Type Department Care Team (Late st Contact Info) Description 04/26/1997 Outpatient Historical Conversion, History Martin Salcedo MD [address] [place] [address] Social History Tobacco Use Types Packs/Day Years Used Date Smoking Tobacco: Never Assessed Comments Unknown Sex and Gender Information Value Date Recorded Sex Assigned at Not on file Legal Sex Female 4:32 AM THEATER USHER Gender Identity Not on file Sexual Orientation Not on file documented as of this encounter Plan of Treatment Not on file documented as of this encounter Visit Diagnoses Not on filedocumented in this encounter Care Teams Glass Sander Belt Relationship Specialty Start Date End Date Memo Narayan MD [address] [place] [phone] PCP - General Family Practice 07/09/17 documented as of this encounter
--- OUTSIDE RECORDS SUMMARY | 2024-10-29 12:36 | XMS_ITS | Clinical Summary ---
Author Organization [facility] Address [address] [facility] [place] [address] Care Team Providers Care Voice Instructor Name Role Phone Memo Narayan MD Primary Care Provider Source Comments [facility],non-owned Affiliates and Associated Physician Practices is amultiple site organization consisting of ambulatory clinics and hospital sitesin [place], [place], [place] and [place]. This disclosure is being madepursuant to the Care Everywhere program and may not contain all information available regarding this patient. Last updated 17.[facility] Allergies Active Allergy Reactions Criticality Noted Date [...] on file Legal Sex Female 6:16 AM DISABILITIES CAREGIVER Gender Identity Not on file Sexual Orientation [...] 2018 ZOSTER VACCINE (1 of 2) 2018 DEPRESSION SCREENING 02/25/2024 COVID-19 VACCINE (1 - 2023-2 5 season) 2024 INFLUENZA VACCINE (#1) 2024 HIB VACCINE Aged Out No longer [...] patient's age to complete this topic Insurance [facility] Member Subscriber Plan / Payer (Ef fective 2015-Present) Name:Leigh Wells Relation to Subscriber:Spouse Name:CHON WELLS Date of :1969 (Home) Address: [facility] [place] [address] Payer ID:[id number] (NAIC) Type:O Address: [address] [facility] Care Teams Voice Instructor Relationship Specialty Start Date End Date Memo Narayan MD [address] [place] [address] PCP - General Family Medicine 06/17/17
--- OUTSIDE RECORDS SUMMARY | 2024-10-29 12:36 | XMS_ITS | Clinical Summary ---
Author Organization [facility] Address [address] [place] [address] Phone Care Team Providers Care Preboarder Name Role Phone Memo Narayan MD Primary [...] Encounters Date Type Department Care Team Description 09/28/2024 External Device Data [facility] ABSTRACTION Provider, Abstract 09/08/2024 External Device Data [facility] ABSTRACTION Provider, Abstract 09/08/2024 External Device Data [facility] ABSTRACTION Provider, Abstract 08/11/2024 External Device Data [facility] ABSTRACTION Provider, Abstract [...] on file Legal Sex Female 4:32 AM SCRAP BALLER Gender Identity Not on file Sexual Orientation [...] (1 of 2) 2018 INFLUENZA VACCINE (#1) 2024 BREAST CANCER SCREENING 02/09/2025 02/10/20 24, 01/30/2023, 10/17/2021, Additional history exists Procedures Procedure Name Priority Date/Time Associated Diagnosis Comments MAMMO 3D SHELLEY SCREEN BILAT W OR WO CAD Routine 02/10/2024 12:44 PM SCRAP BALLER Visit for screening mammogram from Last 3 Months or Most Recently Relevant to Health Maintenance Results * MAMMO 3D SHELLEY SCREEN BILAT W OR WO CAD (02/10/2024 12:44 PM SCRAP BALLER) Anatomical Region Laterality Modality Breast Bilateral Mammography 02/10/2024 12:4 5 PM SCRAP BALLER Impressions 02/10/2024 4:00 PM SCRAP BALLER IMPRESSION: Negative bilateral screening mammogram. Recommend routine followup. OVERALL FINAL ASSESSMENT: BI-RADS CATEGORY 1: Negative DICTATION LOCATION: [facility] 02/10/2024 4:00 PM SCRAP BALLER BILATERAL SCREENING DIGITAL MAMMOGRAM WITH 3D TOMOSYNTHESIS [...] ASSESSMENT: BI-RADS CATEGORY 1: Negative DICTATION LOCATION: [facility] Memo Narayan MD MAMMO ORDERABLES Final Result from Last 3 Months or Most Recently Relevant to Health Maintenance Insurance [facility] BLUE ACCESS/TRUE BLUE PPO Advance Directives For more information, please contact: [phone] * Full Code (Latest Code Status on File) Date Activated Date Inactivated Comments 06/23/2014 10:11 AM 06/23/2014 3:19 PM * Full Code Date Activated Date Inactivated Comments 06/23/2014 9:57 AM 06/23/2014 10:11 AM Care Teams Preboarder Relationship Specialty Start Date End Date Memo Narayan MD [address] [place] [address] PCP - General Family Practice 07/09/17
--- OUTSIDE RECORDS SUMMARY | 2024-10-29 12:36 | XMS_ITS | Encounter Summary ---
Author Organization [facility] Address [address] [facility] [address] [facility] Attn: Epic Prelude ADT [place] [phone] Care Team Providers Care Precision Agronomist Name Role Phone Memo Narayan MD Primary Care Provider Encounter Details Date Type Department Care Team (Late st Contact Info) Description 01/18/1997 Outpatient Historical Conversion, History Martin Salcedo MD [address] [place] [address] Social History Tobacco Use Types Packs/Day Years Used Date Smoking Tobacco: Never Assessed Comments Unknown Sex and Gender Information Value Date Recorded Sex Assigned at Not on file 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
--- OUTSIDE RECORDS SUMMARY | 2024-10-29 12:36 | XMS_ITS | Encounter Summary ---
Author Organization [facility] Address [address] [facility] Attn: Epic Prelude ADT [place] [phone] Care Team Providers Care Career Consultant Name Role Phone Memo Narayan MD Primary Care Provider Encounter Details Date Type Department Care Team (Late st Contact Info) Description 01/04/1997 Outpatient Historical Conversion, History Martin Salcedo MD [address] [facility] [place] [address] Social History Tobacco Use Types Packs/Day Years Used Date Smoking Tobacco: Never Assessed Comments Unknown Sex and Gender Information Value Date Recorded Sex Assigned at Not on file 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
--- OUTSIDE RECORDS SUMMARY | 2024-10-29 12:36 | XMS_ITS | Encounter Summary ---
Author Organization [facility] Address [address] [facility] Attn: Epic Prelude ADT [place] [phone] Care Team Providers Care Distiller Name Role Phone Memo Narayan MD Primary Care Provider Encounter Details Date Type Department Care Team (Late st Contact Info) Description 11/02/1996 Outpatient Historical Conversion, History Martin Salcedo MD [address] [facility] [place] [address] Social History Tobacco Use Types Packs/Day Years Used Date Smoking Tobacco: Never Assessed Comments Unknown Sex and Gender Information Value Date Recorded Sex Assigned at Not on file 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
--- OUTSIDE RECORDS SUMMARY | 2024-10-29 12:36 | XMS_ITS | Encounter Summary ---
Author Organization [facility] Address [address] [facility] Attn: Epic Prelude ADT [place] [phone] Care Team Providers Care Piano Mechanic Apprentice Name Role Phone Memo Narayan MD Primary Care Provider Encounter Details Date Type Department Care Team (Late st Contact Info) Description 12/14/1996 Outpatient Historical Conversion, History Martin Salcedo MD [address] [place] [address] Social History Tobacco Use Types Packs/Day Years Used Date Smoking Tobacco: Never Assessed Comments Unknown Sex and Gender Information Value Date Recorded Sex Assigned at Not on file 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
--- OUTSIDE RECORDS SUMMARY | 2024-10-29 12:36 | XMS_ITS | Encounter Summary ---
Author Organization [facility] Address [address] [facility] Attn: Epic Prelude ADT [place] [phone] Care Team Providers Care Tubing Assembler Name Role Phone Memo Narayan MD Primary Care Provider Encounter Details Date Type Department Care Team (Late st Contact Info) Description 02/15/1997 Outpatient Historical Conversion, History Martin Salcedo MD [address] [place] [address] Social History Tobacco Use Types Packs/Day Years Used Date Smoking Tobacco: Never Assessed Comments Unknown Sex and Gender Information Value Date Recorded Sex Assigned at Not on file 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
== END 2024-10-29 12:32 | disposition home or self-care (01) ==
LOC: ANHGOSHLAB 12:33
PROVIDERS: PCP Family Medicine; Visit Provider Family Medicine
DX: E03.9 Hypothyroidism, unspecified (principal); E78.5 Hyperlipidemia, unspecified
CPT/HCPCS: 36415